=== PATIENT | male | born 1970 | race Caucasian/White ===

== ENCOUNTER 2019-12-22 08:16 | Day surgery (SDC) | payer OTHER ==
[~2019-12-22] VITALS: Ht 182.9 cm; Wt 82.0 kg
[2019-12-22 08:36] VITALS: BP 111/71
[2019-12-22] MEDS ORDERED: OMEP-110 PO (08:51)
[2019-12-22] MEDS ORDERED: CIPR250T27 PO (08:51)
[2019-12-22] MEDS ORDERED: METR250T PO (08:51)
[2019-12-22] MEDS ORDERED: LACTATED RINGERS 1,000 ML IV SCH (09:13)
[2019-12-22] MEDS ORDERED: PROPOFOL 10 MG/ML, 20ML ONE (09:39)
[2019-12-22] MEDS ORDERED: HYDROmorphone 2 MG/ML, 1ML IVPush PRN (10:00)
[2019-12-22] MEDS ORDERED: hydrALAzine 20 MG/ML, 1ML IV PRN (10:00)
[2019-12-22] MEDS ORDERED: PROMETHAZINE 12.5 MG SUPP PR PRN (10:00)
[2019-12-22] MEDS ORDERED: PROMETHAZINE 25 MG/ML, 1ML IV PRN (10:00)
[2019-12-22] MEDS ORDERED: ONDANSETRON 2MG/ML, 2ML IV PRN (10:00)
[2019-12-22] MEDS ORDERED: OXYcodone 5 MG/5 ML ORAL.SOL UDC PO PRN (10:00)
[2019-12-22] MEDS ORDERED: ONDANSETRON ODT 8 MG PO PRN (10:00)
[2019-12-22] MEDS ORDERED: FENTANYL PF 100 MCG/2ML IV PRN (10:00)
[2019-12-22] MEDS ORDERED: HALOPERIDOL 5 MG/ML IV PRN (10:00)
[2019-12-22] MEDS ORDERED: MIDAZOLAM 1 MG/ML, 2ML IV PRN (10:00)
[2019-12-22] MEDS ORDERED: ALBUTEROL SULFATE 2.5 MG/3 ML NPPB PRN (10:00)
[2019-12-22] MEDS ORDERED: LABETALOL 5MG/ML, 20ML IV PRN (10:00)
[2019-12-22] MEDS ORDERED: MEPERIDINE/PF 25MG/ML,1ML IVPush PRN (10:00)
[2019-12-22] MEDS ORDERED: EPHEDRINE 50 MG/ML, 1ML IVPush PRN (10:00)
[2019-12-22] MEDS ORDERED: DIAZEPAM 5 MG/ML, 2ML IVPush PRN (10:00)
[2019-12-22] MEDS ORDERED: LORazepam 2 MG/ML, 1ML ONE (10:08)
[2019-12-22] MEDS ORDERED: LORazepam 2 MG/ML, 1ML IVPush PRN (10:30)
[2019-12-22] MEDS ORDERED: LIDOCAINE 2% VISCOUS 15 ML UDC MM ONE (10:30)
== END 2019-12-22 11:35 | disposition home or self-care (01) ==
LOC: OUT 08:16 → EDBD 10:45 → OUT 11:35
PROVIDERS: ATTEND Internal Medicine Gastroenterology
DX: K74.60 Unspecified cirrhosis of liver (principal); I85.10 Secondary esophageal varices without bleeding; K76.6 Portal hypertension; K31.89 Other diseases of stomach and duodenum; Z88.0 Allergy status to penicillin
CPT/HCPCS: 43244; J2060; J2704; J7120